=== PATIENT | male | born 1985 | race Caucasian/White ===

== ENCOUNTER 2017-12-11 11:39 | Emergency (ER) | payer SELFPAY ==
[2017-12-11 11:49] VITALS: BMI 31.1
--- NOTE | 2017-12-11 12:41 | PDOC ---
*Physical Exam - Vital Signs Last Vital Signs Temp Pulse Resp BP Pulse Ox 101.6 F H 109 H 20 132/88 100 12/11/17 11:48 12/11/17 11:48 12/11/17 11:48 12/11/17 11:48 12/11/17 11:48 - Physical Exam Comments: 12/11/17 12:40 The patient was examined by JACQUELINE Vaughan under my direct supervision. I personally evaluated the patient. I concur with the above findings and the plan of care. ED Treatment Course - LABORATORY CBC & Chemistry Diagram: 12/11/17 12:50 12/11/17 12:55 *DC/Admit/Observation/Transfer Diagnosis at time of Disposition: Viral syndrome - Discharge Dispostion Disposition: HOME Condition at time of disposition: Improved - Referrals - Patient Instructions Printed Discharge Instructions: DI for Viral Syndrome Additional Instructions: You most likely have a viral illness. There was no evidence of throat infection , flu or pneumonia Rest, drink plenty of fluids and take [id number] medication as needed. - Post Discharge Activity Forms/Work/School Notes: Back to Work
[2017-12-11] MEDS ORDERED: SODIUM CHLORIDE 1,000 ML IV STA (12:46)
[2017-12-11 13:00] LABS: BASO % 0.4 % (0-2.0); EOS % 0.1 % (0-4.5); HEMATOCRIT 46.7 % (35.4-49); HEMOGLOBIN 15.5 GM/dL (11.7-16.9); LYMPH % 11.6 % (8-40); MCH 29.4 pg (25.7-33.7); MCHC 33.2 g/dl (32.0-35.9); MEAN CELL VOLUME 88.4 fl (80-96); MEAN PLT VOLUME 8.9 fl (7.5-11.1); MONO % 14.5 % (3.8-10.2); NEUT % 73.4 % (42.8-82.8); PLATELET COUNT 203 K/MM3 (134-434); RBC 5.28 M/mm3 (4.00-5.60); RDW 12.9 % (11.9-15.9); WHITE BLOOD COUNT 8.3 K/mm3 (4.0-10.0)
[2017-12-11] MEDS ORDERED: IBUPROFEN 400 MG TABLET (FP) PO ONE ×2 (13:08→13:09)
--- NOTE | 2017-12-11 13:25 | PDOC ---
History of Present Illness - General Chief Complaint: SIRS, Suspected/Possible Stated Complaint: COLD SYMPTOMS Time Seen by Provider: 12/11/17 12:16 History Source: Patient - History of Present Illness Timing/Duration: other (this am) Associated Symptoms: reports: fever/chills, headaches, malaise. denies: cough Past History - Past Medical History Allergies/Adverse Reactions: Allergies Allergy/AdvReac Type Severity Reaction Status Date / Time No Known Allergies Allergy Verified 12/11/17 11:46 Home Medications: Ambulatory Orders Acetaminophen [Tylenol] 650 mg PO QID PRN 12/11/17 - Suicide/Smoking/Psychosocial Hx Smoking History: Never smoked Review of Systems - Review of Systems Constitutional: Yes: Chills, Fever, Malaise Respiratory: No: Cough, Shortness of Breath Cardiac (ROS): No: Chest Pain ABD/GI: No: Diarrhea, Nausea, Vomiting, Abdominal cramping : No: Dysuria Musculoskeletal: No: Neck Pain Neurological: Yes: Headache. No: Dizziness *Physical Exam - Vital Signs Last Vital Signs Temp Pulse Resp BP Pulse Ox 101.6 F H 109 H 20 132/88 100 12/11/17 11:48 12/11/17 11:48 12/11/17 11:48 12/11/17 11:48 12/11/17 11:48 - Physical Exam General Appearance: Yes: Appropriately Dressed. No: Apparent Distress HEENT: positive: Normal ENT Inspection, Normal Voice, TMs Normal, Pharynx Normal. negative: Scleral Icterus (R), Scleral Icterus (L) Neck: positive: Supple. negative: Lymphadenopathy (R), Lymphadenopathy (L) Respiratory/Chest: positive: Lungs Clear, Normal Breath Sounds. negative: Respiratory Distress Cardiovascular: positive: Regular Rate, S1, S2 Gastrointestinal/Abdominal: positive: Soft. negative: Tender Musculoskeletal: negative: CVA Tenderness Integumentary: positive: Dry, Warm Neurologic: positive: Fully Oriented, Alert, Normal Mood/Affect, Other (no e/o meningismus) ED Treatment Course - LABORATORY CBC & Chemistry Diagram: 12/11/17 12:50 12/11/17 12:55 - ADDITIONAL ORDERS Additional order review: 12/11/17 12:50 Influenza Types A,B Antigen - Preliminary Nasopharyngeal Swab - Preliminary 12/11/17 12:50 Group A Strep Rapid Antigen - Preliminary Throat 12/11/17 12:50 RBC 5.28 MCV 88.4 MCHC 33.2 RDW 12.9 MPV 8.9 Neutrophils % 73.4 Lymphocytes % 11.6 Monocytes % 14.5 H Eosinophils % 0.1 Basophils % 0.4 - Medications Given in the ED: ED Medications Discontinued Medications Generic Name Dose Route Start Last Admin Trade Name Zoraida PRN Reason Stop Dose Admin Ibuprofen 800 mg 12/11/17 13:08 12/11/17 13:09 Motrin - PO 12/11/17 13:09 800 mg ONCE ONE Administration Medical Decision Making - Medical Decision Making 12/11/17 13:21 32-year-old male, no significant history here with malaise with headache, sore throat and subjective fever that started this a.m. No cough, SOB, CP, neck pain , photophobia, abdominal pain, changes in bowel movement, nausea or vomiting. No sick contacts or recent travel See exam Viral syndrome, r/o f/u and strep, no e/o meningitis, unlikely PNA Low grade fever w/ mild tachycardia, exam otherwise unremarkable -motrin -IVF -labs -reassess 12/11/17 14:57 12/11/17 15:52 Labs flu, strep and chest x-ray all normal. Patient significantly improved with meds and IV fluids. Rpt vitals improved. Will dc with supportive treatment *DC/Admit/Observation/Transfer Diagnosis at time of Disposition: Viral syndrome - Discharge Dispostion Disposition: HOME Condition at time of disposition: Improved - Referrals - Patient Instructions Printed Discharge Instructions: DI for Viral Syndrome Additional Instructions: You most likely have a viral illness. There was no evidence of throat infection , flu or pneumonia Rest, drink plenty of fluids and take [id number] medication as needed. - Post Discharge Activity Forms/Work/School Notes: Back to Work
[2017-12-11 13:37] LABS: ALBUMIN 3.6 g/dl (3.4-5.0); ALK PHOS 76 U/L (45-117); ANION GAP 11 MMOL/L (8-16); BILIRUBIN,TOTAL 0.5 mg/dL (0.2-1); BLOOD UREA NITROGEN 12 mg/dL (7-18); CALCIUM 8.3 mg/dL (8.5-10.1); CHLORIDE 105 mmol/L (98-107); CO2 22 mmol/L (21-32); CREATININE 0.9 mg/dL (0.55-1.3); GLUCOSE,RANDOM 96 mg/dL (74-106); POTASSIUM 3.7 mmol/L (3.5-5.1); SGOT/AST 16 U/L (15-37); SGPT/ALT 31 U/L (13-61); SODIUM 138 mmol/L (136-145); TOT PROT 7.2 g/dl (6.4-8.2)
[2017-12-11 13:39] LABS: URINE APPEARANCE CLEAR; URINE BILIRUBIN NEGATIVE (<2.0 mg/dL); URINE COLOR DKYELLOW; URINE GLUCOSE (UA) NEGATIVE (NEGATIVE); URINE KETONE 1+ (NEGATIVE); URINE LEUK ESTERASE NEGATIVE (NEGATIVE); URINE NITRITE NEGATIVE (NEGATIVE); URINE PROTEIN 2+ (NEGATIVE); URINE UROBILINOGEN NEGATIVE mg/dL (0.2-1.0)
[2017-12-11 13:41] LABS: URINE HYALINE CAST 2 /lpf; URINE MUCUS MODERATE
[2017-12-11 13:52] VITALS: BP 130/72; PULSE 82; TEMP 98.1
== END 2017-12-11 16:17 | disposition home or self-care (01) ==
LOC: JER 11:39
PROC: 3E0337Z Introduction of Electrolytic and Water Balance Substance into Peripheral Vein, Percutaneous Approach (ICD-10-PCS; principal; 2017-12-11)
DX: B34.9 Viral infection, unspecified (principal)
CPT/HCPCS: 36415; 71046-TC-FY; 80053; 81003; 81015; 85025; 87070; 87430; 87804; 99284-25; J7030